=== PATIENT | male | born 1935 | race Caucasian/White ===

== ENCOUNTER 2019-05-18 10:40 | Emergency (ER) | payer SELFPAY ==
[~2019-05-18] VITALS: Ht 175.3 cm; Wt 71.0 kg
[2019-05-18] MEDS ORDERED: SOD CHLORIDE 0.9% 500 ML IV STA (10:49)
[2019-05-18] MEDS ORDERED: ONDANSETRON 4 MG INJ IV STA (10:49)
[2019-05-18] MEDS ORDERED: ACETAMINOPHEN 325 MG TAB PO ONE (11:00)
[2019-05-18 11:06] VITALS: Ht 175.3 cm; Wt 71.0 kg
[2019-05-18 15:05] VITALS: BP 123/72; PULSE 54; RESP 16
== END 2019-05-18 15:06 | disposition home or self-care (01) ==
LOC: E/R 10:40
DX: R10.84 Generalized abdominal pain (principal); F17.210 Nicotine dependence, cigarettes, uncomplicated; R40.2142 Coma scale, eyes open, spontaneous, at arrival to emergency department; R40.2362 Coma scale, best motor response, obeys commands, at arrival to emergency department; R40.2252 Coma scale, best verbal response, oriented, at arrival to emergency department
CPT/HCPCS: 36415; 71045; 74176; 80053; 83690; 84484; 85025; 93005; 96374; 99285; J2405; J7040